=== PATIENT | female | born 1960 | race Caucasian/White ===

== ENCOUNTER 2023-11-28 09:35 | Emergency (ER) | payer MEDICARE, SELFPAY ==
[2023-11-28 09:52] VITALS: BP 104/55; PULSE 90; RESP 16; TEMP 36.8; O2SAT 94
[2023-11-28 10:46] LABS: Appearance Urine Turbid (Clear); Bacteria Urine 1+ /hpf; Bilirubin Urine Negative (Negative); Blood Urine 2+ (Negative); Color Urine Yellow (Yellow); Glucose Urine UA 3+ mg/dL (Negative); Ketones Urine Trace mg/dL (Negative); Leukocyte Esterase Ur 2+ LEU/UL (Negative); Nitrate Urine Negative (Negative); Protein Urine 2+ mg/dL (Negative); Specific Grav Ur 1.016 (1.001-1.035); Squamous Epithelial Cell Urine Few /hpf (Few); Urobilinogen Urine 0.2 mg/dL (<2.0); WBC Urine >100 /hpf (0-3)
[2023-11-28 10:50] LABS: Add Urine Microscopic? YES
--- NOTE | 2023-11-28 10:51 | ED.FEMALEGU ---
HPI - Female Genitourinary General Chief complaint: Urogenital-Female Stated complaint: PAINFUL URINATION X2D Time Seen by Provider: 11/28/23 09:38 History of Present Illness HPI Narrative: 63-year-old Nontoxic appearing female presents to the emergency room via urgent care for further evaluation of a suspected kidney infection. Patient states last night she has subjective fever of 101.0, and had 1 episode of emesis this morning. Complains of left flank pain associated with dysuria, urinary urgency and frequency. Related Data Allergies Allergy/AdvReac Type Severity Reaction Status Date / Time No Known Allergies Allergy Verified 11/28/23 10:53 Review of Systems Review of Systems: ROS unremarkable except for noted in HPI Exam Narrative: GENERAL: Well-appearing, well-nourished, no physical limitations, and in no acute distress. HEAD: Normocephalic, atraumatic. EYES: Conjunctivae normal, PERRLA and EOMI. CHEST: Clear to auscultation. No respiratory distress. No wheezes rales or rhonchi. HEART: Regular rate and rhythm. No murmur heard. Normal peripheral pulses. ABDOMEN: Soft, nontender, nondistended, normal active bowel sounds. BACK: left CVA tenderness EXTREMITIES: Normal range of motion. No edema. No clubbing or cyanosis SKIN: Warm, dry, no rash. No noted wounds NEURO: No focal deficits. Alert and oriented x3. MAEW. CN's II-XI intact bilaterally, normal gait PSYCH: Cooperative. Normal mood and affect. Course Vital Signs Vital signs: Vital Signs Temperature 36.8 C 11/28/23 09:52 Pulse Rate 90 11/28/23 09:52 Respiratory Rate 16 11/28/23 09:52 Blood Pressure 104/55 L 11/28/23 09:52 Pulse Oximetry 94 11/28/23 09:52 Oxygen Delivery Room Air 11/28/23 09:52 Temperature 36.8 C 11/28/23 09:52 Pulse Rate 90 11/28/23 09:52 Respiratory Rate 16 11/28/23 09:52 Blood Pressure 104/55 L 11/28/23 09:52 Pulse Oximetry 94 11/28/23 09:52 Oxygen Delivery Room Air 11/28/23 09:52 MDM - Female Genitourinary Lab Data Labs: Lab Results 11/28/23 Range/Units 10:26 Urine Color Yellow (Yellow) Urine Appearance Turbid H (Clear) Urine pH 6.0 (5.0-9.0) Ur Specific [place] 1.016 (1.001-1.035) Urine Protein 2+ H (Negative) mg/dL Urine Glucose (UA) 3+ H (Negative) mg/dL Urine Ketones Trace H (Negative) mg/dL Ur Blood (Man) 2+ H (Negative) Urine Nitrate Negative (Negative) Urine Bilirubin Negative (Negative) Urine Urobilinogen 0.2 (<2.0) mg/dL Leukocyte Esterase Rfl 2+ H (Negative) MARLEE/UL Urine RBC 3-5 H (0-2) /hpf Urine WBC >100 H (0-3) /hpf Ur Squamous Epith Cells Few (Few) /hpf Urine Bacteria 1+ H /hpf Urine Casts 3-5 Discharge Plan Discharge Clinical Impression: Urinary tract infection Patient Disposition: Home, Self-Care Condition: Stable Instructions: Antibiotic Form, Urinary Tract Infection in Women (ED), Kidney Infection (ED) Prescriptions: New cephalexin 500 mg capsule 500 mg PO Q12H Qty: 10 0RF Follow-up/Referrals: UNKNOWN,DOCTOR [Primary Care Provider] - Time of Disposition: 11:01
[2023-11-28] MEDS: cefTRIAXone 1 GM VIAL IM (11:10)
== END 2023-11-28 11:10 | disposition home or self-care (01) ==
PROVIDERS: Emergency Provider Nurse Practitioner Family
DX: N39.0 Urinary tract infection, site not specified (principal)
CPT/HCPCS: 81001; 87086; 96372; 99283; J0696